=== PATIENT | male | born 1955 | race Caucasian/White ===

== ENCOUNTER 2018-09-19 07:00 | Outpatient (CLI) | payer BC, SELFPAY ==
[2018-09-19 10:02] LABS: Hemoglobin A1C 5.2 % (4.5-6.2)
[2018-09-19 10:16] LABS: ALT 73 U/L (12-78); AST 51 U/L (15-37); Albumin 4.4 g/dL (3.4-5.0); Alkaline Phosphatase 75 U/L (46-116); Anion Gap 12.1 mmol/L (3-11); BUN 5 mg/dL (7-18); Bilirubin, Total 0.9 mg/dL (0.2-1.0); CO2 25.9 mmol/L (21.0-32.0); Calcium 9.5 mg/dL (8.5-10.1); Calculated LDL 63 mg/dL; Chloride 99 mmol/L (98-107); Cholesterol 156 mg/dL (50-200); Glucose 99 mg/dL (70-100); HDL Cholesterol 87 mg/dL (40-60); Potassium 5.3 mmol/L (3.5-5.1); Sodium 137 mmol/L (136-145); Triglyceride 31 mg/dL (30-150)
== END 2018-09-19 07:20 ==
PROVIDERS: PCP Nurse Practitioner Family; Visit Provider Nurse Practitioner Family
DX: E78.5 Hyperlipidemia, unspecified (principal); R73.01 Impaired fasting glucose; I10 Essential (primary) hypertension
CPT/HCPCS: 36415; 80053; 80061; 83721; 83036

== ENCOUNTER 2018-10-11 08:04 | Outpatient (CLI) | payer BC, SELFPAY ==
[2018-10-11 09:35] LABS: ALT 53 U/L (12-78); AST 36 U/L (15-37); Albumin 2.5 g/dL (3.4-5.0); Alkaline Phosphatase 58 U/L (46-116); Bilirubin, Direct 0.26 mg/dL (0.00-0.20); Bilirubin, Total 0.7 mg/dL (0.2-1.0); Potassium 4.5 mmol/L (3.5-5.1); Total Protein 7.3 g/dL (6.4-8.2)
== END 2018-10-11 08:24 ==
PROVIDERS: PCP Nurse Practitioner Family; Visit Provider Nurse Practitioner Family
DX: E87.5 Hyperkalemia (principal); R94.5 Abnormal results of liver function studies
CPT/HCPCS: 36415; 80076; 84132